=== PATIENT | female | born 1940 ===

== ENCOUNTER 2021-01-06 13:53 | Outpatient (CLI) | payer MEDICARE ==
[2021-01-06] MEDS ORDERED: OMNIPAQUE 350 MG/ML, 75ML BOTTLE ONE (15:03)
== END 2021-01-06 23:59 | disposition home or self-care (01) ==
LOC: CFH 13:53
PROVIDERS: ATTEND Surgery
DX: Z09 Encounter for follow-up examination after completed treatment for conditions other than malignant neoplasm (principal); Z85.118 Personal history of other malignant neoplasm of bronchus and lung
CPT/HCPCS: 71260; Q9967